=== PATIENT | male | born 1990 | race Caucasian/White ===

== ENCOUNTER 2021-03-18 11:34 | Emergency (ER) | payer OTHER ==
[~2021-03-18] VITALS: Ht 172.7 cm; Wt 78.0 kg
[2021-03-18 11:43] VITALS: BP_SYST 154
[2021-03-18] MEDS ORDERED: BACITRACIN 1 GM OINT TP ONE (12:30)
[2021-03-18] MEDS ORDERED: DIPH-TET-PERTUS Vaccine 0.5 ML VIAL (ADACEL) I.M. ONE (12:30)
[2021-03-18] MEDS ORDERED: LIDOCAINE 1% 10 MG/ML, 20 ML MDV INJ ONE (12:30)
[2021-03-18 13:18] VITALS: BP_SYST 154
== END 2021-03-18 13:18 | disposition home or self-care (01) ==
LOC: SED 11:34
DX: S61.412A Laceration without foreign body of left hand, initial encounter (principal); W45.8XXA Other foreign body or object entering through skin, initial encounter; Y93.89 Activity, other specified; Y92.89 Other specified places as the place of occurrence of the external cause; Y99.8 Other external cause status
CPT/HCPCS: 90715; 99283; J2001

== ENCOUNTER 2021-03-24 14:44 | Emergency (ER) | payer OTHER ==
[~2021-03-24] VITALS: Ht 172.7 cm; Wt 79.4 kg
[2021-03-24 14:58] VITALS: BP_SYST 127
--- NOTE | 2021-03-24 15:05 | NUR ---
Patient to ER bed 4 to gown for evaluation. Side rails up. Report given to Dominic ROSS.
--- NOTE | 2021-03-24 15:06 | NUR ---
HERE FOR C/O HAND LAC REPAIR 03/22/21 SUTURES, INTACT. PT C/O INCREASED SWELLING AND PAIN
--- NOTE | 2021-03-24 15:20 | NUR ---
DR BRISENO IN TO ASSESS
[2021-03-24 15:21] VITALS: BP_SYST 125
--- NOTE | 2021-03-24 15:44 | NUR ---
Patient given written and verbal discharge instructions and verbalizes understanding. ER MD discussed with patient the results and treatment provided. Patient in stable condition. ID arm band removed. Patient educated on pain management and to follow up with PMD. Pain Scale 0/10 Opportunity for questions provided and answered.
== END 2021-03-24 15:21 | disposition home or self-care (01) ==
LOC: SED 14:44
DX: S61.412D Laceration without foreign body of left hand, subsequent encounter (principal); Z48.02 Encounter for removal of sutures; W45.8XXD Other foreign body or object entering through skin, subsequent encounter
CPT/HCPCS: 99281

== ENCOUNTER 2022-08-19 02:36 | Emergency (ER) | payer OTHER ==
[~2022-08-19] VITALS: Ht 172.7 cm; Wt 83.9 kg
[2022-08-19 02:40] VITALS: BP_SYST 148
[2022-08-19] MEDS ORDERED: IBUP-1971 PO (03:26)
[2022-08-19] MEDS ORDERED: PRED20TA PO (03:26)
[2022-08-19] MEDS ORDERED: PSEU120T57 PO (03:26)
[2022-08-19] MEDS ORDERED: KETOROLAC TROMETHAMINE 60 MG/2 ML VIAL IM ONE (03:30)
[2022-08-19 04:08] VITALS: BP_SYST 140
== END 2022-08-19 04:08 | disposition home or self-care (01) ==
LOC: SED 02:36
DX: J06.9 Acute upper respiratory infection, unspecified (principal); R51.9 Headache, unspecified; R05.9 Cough, unspecified; Z79.899 Other long term (current) drug therapy
CPT/HCPCS: 99283; 96372; J1885